=== PATIENT | female | born 1930 | race Caucasian/White ===

== ENCOUNTER 2017-01-06 13:52 | Emergency (ER) | payer OTHER, MEDICARE ==
[~2017-01-06] VITALS: Ht 160 cm; Wt 81.6 kg
--- NOTE | 2017-01-06 14:55 | ED UPPER/LOWER EXTREMITY COMPL ---
History of Present Illness General Chief Complaint: Hip Injury Stated Complaint: R HIP PAIN Source: patient, family, old records Exam Limitations: no limitations Vital Signs & Intake/Output Vital Signs & Intake/Output Vital Signs Date Time Temp Pulse Resp B/P Pulse O2 O2 Flow FiO2 Ox Delivery Rate 01/06 1651 98.8 67 18 158/86 98 Room Air Room Air 01/06 1355 98.7 66 20 175/94 97 Room Air Allergies Coded Allergies: NO KNOWN ALLERGIES (04/13/11) Reconcile Medications Tramadol HCl 50 MG TABLET 1 TAB PO BIDP PRN PAIN Triage Note: PT TO ED WITH SON C/O RIGHT HIP PAIN X 1 WEEK. DENIES INJURY/FALL. TOOK ADVIL WITH NO RELIEF. PAIN IS WORSE WITH MOVING/STANDING A CERTAIN WAY. Triage Nurses Notes Reviewed? yes Onset: Gradual Duration: week(s): (1), constant Timing: recent history Severity: mild, moderate Severity Numbers: 6 Pain/Injury Location: Right: Hip. Method of Injury: unknown Modifying Factors: Improves With: rest. Worsens With: movement. Associated Symptoms: none HPI: 86-year-old female with history of hypertension osteoporosis presents complaining of right hip pain radiating into her right lower back for the past 1 week. Patient denies any known injury or trauma she's been taking Advil without improvement. Pain is sharp 8 out of 10. She believes the symptoms are secondary to sleeping on her side. There is no recent fall or trauma. She denies any abdominal pain hernia fever chills. No urinary or bowel incontinence no weight loss. She is not sought care for the symptoms until today. She denies any knee foot or ankle pain no numbness or tingling. She denies any bruising to her skin redness warmth or rashes (JULIA COTTO) Past History Travel History Traveled to [place] past 21 day No Medical History Any Pertinent Medical History? see below for history Cardiovascular: hypertension Musculoskeletal: osteoporosis Surgical History Surgical History: non-contributory Psychosocial History What is your primary language Ukrainian Tobacco Use: Quit >30 days ago ETOH Use: denies use Illicit Drug Use: denies illicit drug use Family History Hx Contributory? No (JULIA COTTO) Review of Systems Review of Systems Constitutional: Reports: see HPI. All Other Systems: Reviewed and Negative Comments Review of systems: See HPI, All other systems negative. Constitutional, no chills no fever, no malaise HEENT: no sore throat no congestion, no ear pain Cardiovascular: No chest pain , no palpitation , no orthopnea no ankle swelling Skin, no jaundice no rashes, no change in skin Respiratory: No dyspnea no cough no sputum no hemoptysis GI: No nausea no vomiting, no diarrhea, no bloating/constipation : No dysuria No hematuria, no frequency, no discharge Muscle skeletal: No joint pain, joint swelling, back pain, no neck pain, Neurologic: No numbness no headache Psych: No stress Heme/endocrine: No bruising no bleeding Immunology: No lymphadenopathy (JULIA COTTO) Physical Exam Physical Exam General Appearance: no apparent distress, alert, awake Comments: Well-developed well-nourished patient in no apparent distress. HEENT: Atraumatic, extraocular motion intact Neck: Supple, FROM, Back: FROM Cardiovascular: Regular rate and rhythms no murmurs rubs Respiratory: No respiratory distress. Patient speaking in full complete sentences. Breath sounds clear to auscultation bilaterally: NO W/R/R Upper Extremities: full range of motion Hip/Pelvis: Atraumatic/Stable. FROM. No pain with pelvic compression no ecchymosis no signs of trauma Knee: Atraumatic/stable. FROM. No joint swelling, no effusion. No laxity. No pain with ROM Leg: Atraumatic. Nontender. No edema, 5 out of 5 strength in the lower extremity, normal dorsiflexion of great toe bilaterally, gross sensation is intact, patellar tendon reflex 2+ bilaterally. Ankle/Foot: Atraumatic/stable. Skin intact. FROM. No swelling, no effusion. No laxity on exam Pulses: Normal/equal DP/PT pulses bilaterally. Brisk cap refill Neuro: Alert and oriented x3 Skin: Warm & dry;No appreciable rash on exposed skin Psych: Mood affect normal, normal memory normal judgment. (JULIA COTTO) Progress Differential Diagnosis: compartment syndrome, contusion, dislocation, fracture, sprain, tendon injury, ARTHRITIS, CAUDA EQUINA, HERNIATED DISC Plan of Care: Orders Procedure Date/time Status XRY-LUMBOSACRAL SPINE AP & LAT 01/06 1506 Active Current Medications Sig/Brandon Start time Last Medication Dose Stop Time Status Admin Tramadol HCl 50 MG ONCE ONE 01/06 1630 UNVr (Ultram) 01/06 1631 Patient is declining a fever pain when offered I discussed with the patient at length all of their results. I had an extensive conversation regarding need for close follow up with their primary care physician this week as well as return precautions. I answered all of their questions, they feel comfortable with the plan and follow-up care. I discussed the medications that they will receive with the patient. I gave them signs and symptoms that could indicate an adverse reaction. I have advised them to limit their activities until they can see how they respond to the medication. (JULIA COTTO) Diagnostic Imaging: Viewed by Me: Radiology Read. Discussed w/RAD: Radiology Read. Radiology Impression: PATIENT: ANA SONG PRESENT AGE: 86 PATIENT ACCOUNT NO: [id number] : [birth year] LOCATION: [facility] ORDERING PHYSICIAN: JULIA POLK SERVICE DATE: 01/06/17 EXAM TYPE: RAD - XRY-HIP 2-3 VIEWS, RIGHT EXAMINATION: XR HIP, RIGHT CLINICAL INFORMATION: Right hip pain into back. COMPARISON: None TECHNIQUE: Pelvis, AP view Right hip, AP and frog-leg lateral views FINDINGS: There is transitional lumbosacral anatomy. The hypertrophied left L5 transverse process articulates with the sacrum (i.e., Castellvi type 2a). Degenerative disc space narrowing and exuberant osteophyte formation of the visualized lower lumbar spine, and degenerative findings include vacuum disc phenomenon of L4-L5. The osseous pelvic ring is intact. There is mild osteophyte formation of the right sacroiliac joint. The right hip joint space is maintained. No evidence of femoral fracture, subluxation or osteonecrosis. No focal soft tissue swelling around the hip. IMPRESSION: 1. No acute radiographic abnormalities in the pelvis or right hip. 2. Multilevel severe disc degeneration of the visualized lower lumbar spine. DICTATED BY: PAYAL CRANE MD DATE/TIME DICTATED:01/06/171602 MANAGER SAFE:DARSHANA DATE/TIME TRANSCRIBED:01/06/171602 CONFIDENTIAL, DO NOT COPY WITHOUT APPROPRIATE AUTHORIZATION. <Electronically signed in Other Vendor System> SIGNED BY: PAYAL CRANE MD 01/06/17 1612 (JULIA COTTO) Departure Departure Time of Disposition: 1622 Disposition: HOME OR SELF CARE Condition: Stable Clinical Impression Primary Impression: Degenerative disc disease Referrals: MAGGY RAM,KWADWO Myers (PCP/Family) Additional Instructions: FOLLOW UP WITH YOUR PMD THIS WEEK. TRAMADOL FOR BREAKTHROUGH PAIN. TYLENOL EVERY 8 HOURS. INTERCHANGE ICE AND HEAT. RETURN AT ANYTIME SOONER WITH ANY CONCERNS. THIS WAS SENT TO [facility] Departure Forms: Customer Survey General Discharge Information Prescriptions: Current Visit Scripts Tramadol HCl 1 TAB PO BIDP PRN PAIN #10 TAB (JOAQUIN POLK,JULIA) PA/RADIATION MONITOR Co-Sign Statement Statement: ED Attending supervision documentation- [X] I saw and evaluated the patient. I have also reviewed all the pertinent lab results and diagnostic results. I agree with the findings and the plan of care as documented in the PA's/RADIATION MONITOR's documentation. [] I have reviewed the ED Record and agree with the PA's/RADIATION MONITOR's documentation. [] Additions or exceptions (if any) to the PAs/RADIATION MONITOR's note and plan are summarized below: [] (KEV RAM,ELI Damon)
--- NOTE | 2017-01-06 16:12 | RADIOLOGY REPORT ---
EXAMINATION: XR HIP, RIGHT CLINICAL INFORMATION: Right hip pain into back. COMPARISON: None TECHNIQUE: Pelvis, AP view Right hip, AP and frog-leg lateral views FINDINGS: There is transitional lumbosacral anatomy. The hypertrophied left L5 transverse process articulates with the sacrum (i.e., Castellvi type 2a). Degenerative disc space narrowing and exuberant osteophyte formation of the visualized lower lumbar spine, and degenerative findings include vacuum disc phenomenon of L4-L5. The osseous pelvic ring is intact. There is mild osteophyte formation of the right sacroiliac joint. The right hip joint space is maintained. No evidence of femoral fracture, subluxation or osteonecrosis. No focal soft tissue swelling around the hip. IMPRESSION: 1. No acute radiographic abnormalities in the pelvis or right hip. 2. Multilevel severe disc degeneration of the visualized lower lumbar spine.
[2017-01-06] MEDS ORDERED: TRAMADOL HCL50 M1 PO (16:24)
--- NOTE | 2017-01-06 16:30 | RADIOLOGY REPORT ---
EXAMINATION: XR LUMBOSACRAL SPINE CLINICAL INFORMATION: 86-year-old female with right lower back pain. COMPARISON: None TECHNIQUE: Lumbosacral spine, 4 views FINDINGS: There is transitional lumbosacral anatomy (Castellvi type 2a configuration on the left). The upper most nonrib-bearing vertebra is considered T12 for this report. Within the visualized lower thoracic spine, there is multilevel degenerative disc space narrowing, vacuum disc phenomenon and osteophyte formation. Within the lumbar spine, there is multilevel, severe degenerative disc space narrowing, vacuum disc phenomenon, vertebral osteophyte formation and facet arthropathy. There is mild anterior height loss of L1 without evidence of acute fracture. There is 0.4 cm of anterolisthesis of L4 on L5. Sacrum is intact. There is osteophyte formation at the sacroiliac joints. The visualized pelvic bones are intact. There is dense atherosclerotic calcification of the aorta without aortic aneurysm. IMPRESSION: - No acute findings within the severely degenerated lumbar spine. - At L4-L5, the facet arthropathy and severe degenerative disc disease are associated with grade 1 anterolisthesis of L4 on L5. - Atherosclerotic calcification of the abdominal aorta without radiographic evidence of aneurysm.
[2017-01-06 16:51] VITALS: BP 158/86
== END 2017-01-06 16:52 ==
LOC: ERH 13:52
DX: M51.36 Other intervertebral disc degeneration, lumbar region (principal)
CPT/HCPCS: 72100; 73502-RT

== ENCOUNTER 2018-06-05 11:14 | Emergency (ER) | payer OTHER, MEDICARE ==
[~2018-06-05] VITALS: Ht 162.6 cm; Wt 86.2 kg
[~2018-06-05 11:14] MED LIST: AMOXICILLIN500 M2 PO; MEDROL4 M2 PO; TRAMADOL HCL50 M1 PO
[2018-06-05] MEDS ORDERED: ATIVAN0.5 M1 PO (12:53)
[2018-06-05 13:15] VITALS: BP 184/88
--- NOTE | 2018-06-18 18:31 | ED GENERAL ADULT ---
History of Present Illness General Chief Complaint: Upper Respiratory Sx/Fever Stated Complaint: CONGESTION, SORE THROAT, SEEN HERE FOR SAME Source: patient Exam Limitations: no limitations Vital Signs & Intake/Output Vital Signs & Intake/Output reviewed Allergies Coded Allergies: No Known Allergies (05/29/18) Reconcile Medications Amoxicillin 500 MG CAPSULE 1 CAP PO TID Sinusitis Lorazepam (Ativan) 0.5 MG TABLET 1 TAB PO AT BEDTIME insomnia Methylprednisolone. (Medrol) 4 MG TAB.DS.PK 1 DP PO AD sinusitis 6 on day 1 then reduce by one tablet daily until gone Tramadol HCl 50 MG TABLET 1 TAB PO BIDP PRN PAIN Triage Note: PT STATES HER NOSE GARVIN AND SHE IS CONGESTED. PT STATES SHE WAS USING NOSE SPRAY BUT IT ONLY MAKES HER NOSE BURN. PT HERE FEW DAYS AGO FOR COLD. Triage Nurses Notes Reviewed? 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 Denies fever, chills, chest pain, SOB, abdominal pain, N/V/D, rash. Patient reports she has not been sleeping well since starting the prednisone. Past History Travel History Traveled to [place] past 21 day No Medical History Any Pertinent Medical History? see below for history Cardiovascular: hypertension Musculoskeletal: osteoporosis Surgical History Surgical History: non-contributory Psychosocial History What is your primary language Portuguese Tobacco Use: Never used ETOH Use: denies use Illicit Drug Use: denies illicit drug use Family History Hx Contributory? No Review of Systems Review of Systems Constitutional: Reports: see HPI. Denies: no symptoms, chills, diaphoresis, fever, malaise, weakness, unexplained weight loss. All Other Systems: Reviewed and Negative Physical Exam Physical Exam General Appearance: well developed/nourished, no apparent distress, alert, awake Head: atraumatic, normal appearance Eyes: Bilateral: normal appearance, PERRL, EOMI. Ears, Nose, Throat: normal pharynx, normal ENT inspection, hearing grossly normal Neck: normal inspection, supple, full range of motion Respiratory: normal breath sounds, chest non-tender, no respiratory distress, quiet respiration, lungs clear Cardiovascular: regular rate/rhythm Gastrointestinal: normal bowel sounds, soft, non-tender, no organomegaly Back: normal inspection Extremities: normal inspection Neurologic/Psych: no motor/sensory deficits, awake, alert, oriented x 3 Core Measures ACS in differential dx? No CVA/TIA Diagnosis: No Sepsis Present: No Sepsis Focused Exam Completed? No Progress Differential Diagnoses I considered the following diagnoses in my evaluation of the patient: Plan of Care: Discontinue current meds Initial ED EKG: not indicated Departure Departure Disposition: HOME OR SELF CARE Condition: Stable Clinical Impression Primary Impression: Insomnia Secondary Impressions: Prednisone adverse reaction Referrals: Fantasma RAM,Mikhail Myers (PCP/Family) Departure Forms: Customer Survey General Discharge Information Prescriptions: Current Visit Scripts Lorazepam (Ativan) 1 TAB PO AT BEDTIME #6 TAB Critical Care Note Critical Care Note Critical Care Time: non-applicable
== END 2018-06-05 13:15 ==
LOC: ERH 11:14
DX: G47.00 Insomnia, unspecified (principal); T38.0X5A Adverse effect of glucocorticoids and synthetic analogues, initial encounter; I10 Essential (primary) hypertension; M81.0 Age-related osteoporosis without current pathological fracture